=== PATIENT | female | born 1930 | race Caucasian/White ===

== ENCOUNTER 2016-12-03 21:05 | Inpatient (IN) | payer MEDICAID ==
[~2016-12-03] VITALS: Ht 152.4 cm; Wt 51.7 kg
[~2016-12-03 21:05] MED LIST: AMLO2.5T45 PO; ASPI-1159 PO; DIPH25CA83 PO; FLOV44; GABA100C PO; LORA5TAB8 PO; LOSA1TAB37 PO
[2016-12-03] MEDS ORDERED: MORPHINE SULFATE 4 MG/ML CPJ (NOT FOR IM USE) IV STA (22:02)
[2016-12-03] MEDS ORDERED: ONDANSETRON HCL 4MG/2ML VIAL IV STA (22:02)
[2016-12-03 22:37] LABS: BASOPHILS % 0.6 % (0.0-2.0); EOSINOPHILS % 1.6 % (0.0-5.0); HEMATOCRIT. 31.9 % (36.0-48.0); LYMPHOCYTES % 23.3 % (20.0-50.0); MEAN CORPUSCULAR HEMOGLOBIN 32.1 pg (28.0-32.0); MEAN CORPUSCULAR VOLUME 93.5 fL (81.0-99.0); NEUTROPHILS % 60.5 % (40.0-76.0); PLATELET 190 x1000/uL (130-400); RED BLOOD CELL COUNT 3.41 mill/uL (4.2-5.4); RED CELL DISTRIBUTION WIDTH 13.7 % (11.6-14.6)
[2016-12-03 22:47] LABS: PARTIAL THROMBOPLASTIN TIME 26.7 sec (23.4-31.0); PROTHROMBIN TIME 10.9 sec (9.4-11.6)
[2016-12-03 22:52] LABS: CARBON DIOXIDE 25 mEq/L (21-32); CHLORIDE 100 mEq/L (98-107); TROPONIN I 0.02 ng/mL (0.00-0.04)
[2016-12-04] VITALS (7 sets, daily range): BP systolic 137–164; BP diastolic 60–79
[2016-12-04] MEDS ORDERED: DOCUSATE SODIUM 100MG CAPSULE PO PRN (01:00)
[2016-12-04] MEDS ORDERED: CLONIDINE 0.1MG TABLET PO PRN (01:00)
[2016-12-04] MEDS ORDERED: IPRATROPIUM/ALBUTEROL 0.5-3(2.5)MG/3ML NEB INH PRN (01:00)
[2016-12-04] MEDS ORDERED: MAGNESIUM/ALUMINUM HYDROXIDE/SIMETHICONE 30ML UDC PO PRN (01:00)
[2016-12-04] MEDS ORDERED: ONDANSETRON HCL 4MG/2ML VIAL IV PRN (01:00)
[2016-12-04] MEDS ORDERED: ACETAMINOPHEN 325MG TABLET PO PRN (01:00)
[2016-12-04 02:14] LABS: CARBON DIOXIDE 26 mEq/L (21-32); CHLORIDE 100 mEq/L (98-107)
[2016-12-04] MEDS ORDERED: LATA2.5D2 BOTHEYE (03:33)
[2016-12-04] MEDS ORDERED: TOBR5DRO45 EACHEYE (03:34)
[2016-12-04] MEDS ORDERED: CALC-61 PO (03:46)
[2016-12-04] MEDS ORDERED: NITR50CA PO (03:46)
[2016-12-04] MEDS ORDERED: CILO100T PO (03:46)
[2016-12-04] MEDS ORDERED: ACET167L14 PO (03:46)
[2016-12-04] MEDS ORDERED: METO25TA6 PO (03:46)
[2016-12-04] MEDS ORDERED: ACETAMINOPHEN 500 MG PO SCH (04:00)
[2016-12-04] MEDS: ACETAMINOPHEN 650MG/20.3ML UDC PO SCH ×3 (06:26→17:54)
[2016-12-04 08:11] LABS: CREATINE KINASE MB FRACTION 1.2 ng/mL (0.5-3.6); TROPONIN I 0.03 ng/mL (0.00-0.04)
[2016-12-04] MEDS ORDERED: LORATADINE 5 MG PO SCH (09:00)
[2016-12-04] MEDS ORDERED: CALCIUM CARBONATE PO SCH (09:00)
[2016-12-04] MEDS: TOBRAMYCIN/DEXAMETH 0.1/0.3% OPHTH SUSP 2.5ML BOTHEYE SCH ×2 (09:00→13:33)
[2016-12-04] MEDS ORDERED: MEDICATION NOT ON FORMULARY EA (Losartan/Hydrochlorothiazide (Losartan-Hctz 100-25 Mg Ta PO SCH (09:00)
[2016-12-04] MEDS ORDERED: [UNRECOGNIZED DRUG - OTHER] PO SCH (09:00)
[2016-12-04] MEDS: LATANOPROST 0.005% OPHTH DROPS 2.5ML BOTHEYE SCH ×2 (09:00→13:33)
[2016-12-04] MEDS ORDERED: VITAMIN D3 PO SCH (09:00)
[2016-12-04] MEDS: METOPROLOL TARTRATE 25MG TABLET PO SCH ×2 (11:07→21:48)
[2016-12-04] MEDS: ASPIRIN 81MG EC TABLET PO SCH (11:07)
[2016-12-04] MEDS: HYDROCHLOROTHIAZIDE 25MG TABLET PO SCH (11:07)
[2016-12-04] MEDS: LOSARTAN POTASSIUM 100 MG TABLET PO SCH (11:08)
[2016-12-04] MEDS: CALCIUM CARBONATE/VITAMIN D3 500MG TABLET PO SCH ×2 (11:08→17:52)
[2016-12-04] MEDS: NITROFURANTOIN MACROCRYSTAL 50MG CAPSULE PO SCH ×2 (11:08→17:52)
[2016-12-04] MEDS: CILOSTAZOL 100MG TABLET PO SCH ×2 (11:08→17:52)
[2016-12-04] MEDS ORDERED: FOLI-43 PO (11:44)
[2016-12-04] MEDS ORDERED: LORA10TA7 PO (11:44)
[2016-12-04] MEDS ORDERED: PNEUMOCOCCAL 23-VAL P-SAC VAC 0.5 ML IM ONE (12:00)
[2016-12-04] MEDS: LORATADINE 10MG TABLET PO SCH (13:33)
[2016-12-04 15:17] LABS: CREATINE KINASE MB FRACTION 1.4 ng/mL (0.5-3.6); TROPONIN I 0.02 ng/mL (0.00-0.04)
[2016-12-04] MEDS ORDERED: HYDROCODONE/ACETAMINOPHEN 5/325MG TABLET PO PRN (20:17)
[2016-12-04] MEDS: DIPHENHYDRAMINE 25MG CAPSULE PO SCH (20:23)
[2016-12-05] VITALS: BP 140/76
[2016-12-05 04:00] VITALS: BP 132/78
[2016-12-05] MEDS: ACETAMINOPHEN 650MG/20.3ML UDC PO SCH ×4 (06:00→18:31)
[2016-12-05 06:33] LABS: BASOPHILS % 0.7 % (0.0-2.0); EOSINOPHILS % 0.7 % (0.0-5.0); HEMATOCRIT. 36.6 % (36.0-48.0); HEMOGLOBIN. 12.7 g/dL (12.0-16.0); LYMPHOCYTES % 20.3 % (20.0-50.0); MEAN CORPUSCULAR HEMOGLOBIN 32.4 pg (28.0-32.0); MEAN CORPUSCULAR VOLUME 93.6 fL (81.0-99.0); MEAN PLATELET VOLUME 7.7 fl (7.4-10.4); MONOCYTES % 11.9 % (2.0-8.0); NEUTROPHILS % 66.4 % (40.0-76.0); PLATELET 221 x1000/uL (130-400); RED BLOOD CELL COUNT 3.91 mill/uL (4.2-5.4); RED CELL DISTRIBUTION WIDTH 13.8 % (11.6-14.6)
[2016-12-05 06:58] LABS: CARBON DIOXIDE 21 mEq/L (21-32); CHLORIDE 96 mEq/L (98-107)
[2016-12-05 07:10] LABS: HDL CHOLESTEROL 55 mg/dL (40-59); LDL CHOLESTEROL 83 mg/dL (5-100)
[2016-12-05 07:54] VITALS: BP 126/63
[2016-12-05] MEDS: METOPROLOL TARTRATE 25MG TABLET PO SCH ×2 (08:19→20:31)
[2016-12-05] MEDS: LORATADINE 10MG TABLET PO SCH (08:20)
[2016-12-05] MEDS: CILOSTAZOL 100MG TABLET PO SCH ×2 (08:20→18:30)
[2016-12-05] MEDS: TOBRAMYCIN/DEXAMETH 0.1/0.3% OPHTH SUSP 2.5ML BOTHEYE SCH (08:20)
[2016-12-05] MEDS: LOSARTAN POTASSIUM 100 MG TABLET PO SCH (08:20)
[2016-12-05] MEDS: CALCIUM CARBONATE/VITAMIN D3 500MG TABLET PO SCH ×2 (08:20→18:31)
[2016-12-05] MEDS: FOLIC ACID 1MG TABLET PO SCH (08:20)
[2016-12-05] MEDS: NITROFURANTOIN MACROCRYSTAL 50MG CAPSULE PO SCH ×2 (08:20→18:31)
[2016-12-05] MEDS: HYDROCHLOROTHIAZIDE 25MG TABLET PO SCH (08:20)
[2016-12-05] MEDS: ASPIRIN 81MG EC TABLET PO SCH (08:20)
[2016-12-05] MEDS: LATANOPROST 0.005% OPHTH DROPS 2.5ML BOTHEYE SCH (08:21)
[2016-12-05 11:55] VITALS: BP 110/62
[2016-12-05 16:00] VITALS: BP 91/50
[2016-12-05 20:00] VITALS: BP_SYST 120; BP_SYST 129; BP_DIAS 60; BP_DIAS 65
[2016-12-05] MEDS: DIPHENHYDRAMINE 25MG CAPSULE PO SCH (20:31)
[2016-12-06] VITALS: BP 126/69
[2016-12-06] MEDS: ACETAMINOPHEN 650MG/20.3ML UDC PO SCH ×4 (01:09→17:08)
[2016-12-06 04:00] VITALS: BP 125/62
[2016-12-06 06:35] LABS: BASOPHILS % 0.8 % (0.0-2.0); EOSINOPHILS % 2.6 % (0.0-5.0); HEMATOCRIT. 35.4 % (36.0-48.0); HEMOGLOBIN. 12.3 g/dL (12.0-16.0); LYMPHOCYTES % 28.9 % (20.0-50.0); MEAN CORPUSCULAR HEMOGLOBIN 32.4 pg (28.0-32.0); MEAN CORPUSCULAR VOLUME 93.2 fL (81.0-99.0); MEAN PLATELET VOLUME 7.7 fl (7.4-10.4); MONOCYTES % 13.6 % (2.0-8.0); NEUTROPHILS % 54.1 % (40.0-76.0); PLATELET 223 x1000/uL (130-400); RED CELL DISTRIBUTION WIDTH 13.7 % (11.6-14.6)
[2016-12-06 07:18] LABS: CARBON DIOXIDE 22 mEq/L (21-32); CHLORIDE 96 mEq/L (98-107)
[2016-12-06 07:53] VITALS: BP 120/62
[2016-12-06] MEDS: TOBRAMYCIN/DEXAMETH 0.1/0.3% OPHTH SUSP 2.5ML BOTHEYE SCH (09:29)
[2016-12-06] MEDS: LOSARTAN POTASSIUM 100 MG TABLET PO SCH (09:30)
[2016-12-06] MEDS: HYDROCHLOROTHIAZIDE 25MG TABLET PO SCH (09:30)
[2016-12-06] MEDS: NITROFURANTOIN MACROCRYSTAL 50MG CAPSULE PO SCH ×2 (09:30→17:08)
[2016-12-06] MEDS: LATANOPROST 0.005% OPHTH DROPS 2.5ML BOTHEYE SCH (09:30)
[2016-12-06] MEDS: FOLIC ACID 1MG TABLET PO SCH (09:31)
[2016-12-06] MEDS: LORATADINE 10MG TABLET PO SCH (09:33)
[2016-12-06] MEDS: CILOSTAZOL 100MG TABLET PO SCH ×2 (09:33→17:08)
[2016-12-06] MEDS: METOPROLOL TARTRATE 25MG TABLET PO SCH ×2 (09:33→21:00)
[2016-12-06] MEDS: CALCIUM CARBONATE/VITAMIN D3 500MG TABLET PO SCH ×2 (09:36→17:08)
[2016-12-06] MEDS: ASPIRIN 81MG EC TABLET PO SCH (09:36)
[2016-12-06 12:00] VITALS: BP 109/63
[2016-12-06] MEDS ORDERED: HYDR-523 PO (14:33)
[2016-12-06 16:20] VITALS: BP 94/46
[2016-12-06 20:43] VITALS: BP 114/54
[2016-12-06] MEDS: DIPHENHYDRAMINE 25MG CAPSULE PO SCH (22:03)
[2016-12-07] VITALS: BP 125/55
[2016-12-07] MEDS: ACETAMINOPHEN 650MG/20.3ML UDC PO SCH ×4 (00:37→17:12)
[2016-12-07 04:00] VITALS: BP 127/60
[2016-12-07 07:29] VITALS: BP 122/57
[2016-12-07] MEDS: ASPIRIN 81MG EC TABLET PO SCH (08:28)
[2016-12-07] MEDS: NITROFURANTOIN MACROCRYSTAL 50MG CAPSULE PO SCH ×2 (08:29→17:17)
[2016-12-07] MEDS: HYDROCHLOROTHIAZIDE 25MG TABLET PO SCH (08:29)
[2016-12-07] MEDS: FOLIC ACID 1MG TABLET PO SCH (08:29)
[2016-12-07] MEDS: LOSARTAN POTASSIUM 100 MG TABLET PO SCH (08:29)
[2016-12-07] MEDS: LORATADINE 10MG TABLET PO SCH (08:29)
[2016-12-07] MEDS: CALCIUM CARBONATE/VITAMIN D3 500MG TABLET PO SCH ×2 (08:29→17:17)
[2016-12-07] MEDS: METOPROLOL TARTRATE 25MG TABLET PO SCH ×2 (08:29→21:00)
[2016-12-07] MEDS: TOBRAMYCIN/DEXAMETH 0.1/0.3% OPHTH SUSP 2.5ML BOTHEYE SCH (08:30)
[2016-12-07] MEDS: LATANOPROST 0.005% OPHTH DROPS 2.5ML BOTHEYE SCH (08:30)
[2016-12-07] MEDS: CILOSTAZOL 100MG TABLET PO SCH ×2 (08:34→17:17)
[2016-12-07 11:31] VITALS: BP 101/48
[2016-12-07 16:00] VITALS: BP 118/55
[2016-12-07 20:00] VITALS: BP 119/57
[2016-12-07] MEDS: DIPHENHYDRAMINE 25MG CAPSULE PO SCH (21:50)
[2016-12-08] VITALS: BP 108/59
[2016-12-08] MEDS: ACETAMINOPHEN 650MG/20.3ML UDC PO SCH ×4 (00:34→18:54)
[2016-12-08 04:00] VITALS: BP 124/55
[2016-12-08 06:43] LABS: BASOPHILS % 0.5 % (0.0-2.0); EOSINOPHILS % 1.1 % (0.0-5.0); HEMATOCRIT. 38.8 % (36.0-48.0); HEMOGLOBIN. 13.2 g/dL (12.0-16.0); LYMPHOCYTES % 22.1 % (20.0-50.0); MEAN CORPUSCULAR HEMOGLOBIN 32.2 pg (28.0-32.0); MEAN CORPUSCULAR VOLUME 94.7 fL (81.0-99.0); MEAN PLATELET VOLUME 7.5 fl (7.4-10.4); MONOCYTES % 13.3 % (2.0-8.0); PLATELET 233 x1000/uL (130-400); RED BLOOD CELL COUNT 4.09 mill/uL (4.2-5.4); RED CELL DISTRIBUTION WIDTH 13.9 % (11.6-14.6)
[2016-12-08 07:52] LABS: CARBON DIOXIDE 21 mEq/L (21-32); CHLORIDE 99 mEq/L (98-107)
[2016-12-08 07:59] VITALS: BP 139/68
[2016-12-08] MEDS: METOPROLOL TARTRATE 25MG TABLET PO SCH ×2 (11:04→21:00)
[2016-12-08] MEDS: LOSARTAN POTASSIUM 100 MG TABLET PO SCH (11:04)
[2016-12-08] MEDS: HYDROCHLOROTHIAZIDE 25MG TABLET PO SCH (11:04)
[2016-12-08] MEDS: CILOSTAZOL 100MG TABLET PO SCH ×2 (11:04→18:54)
[2016-12-08] MEDS: ASPIRIN 81MG EC TABLET PO SCH (11:05)
[2016-12-08] MEDS: LATANOPROST 0.005% OPHTH DROPS 2.5ML BOTHEYE SCH (11:05)
[2016-12-08] MEDS: LORATADINE 10MG TABLET PO SCH (11:05)
[2016-12-08] MEDS: TOBRAMYCIN/DEXAMETH 0.1/0.3% OPHTH SUSP 2.5ML BOTHEYE SCH (11:05)
[2016-12-08] MEDS: CALCIUM CARBONATE/VITAMIN D3 500MG TABLET PO SCH ×2 (11:05→18:54)
[2016-12-08] MEDS: FOLIC ACID 1MG TABLET PO SCH (11:05)
[2016-12-08] MEDS: NITROFURANTOIN MACROCRYSTAL 50MG CAPSULE PO SCH ×2 (11:05→18:54)
[2016-12-08 12:22] VITALS: BP 120/61
[2016-12-08 16:54] VITALS: BP 100/64
[2016-12-08 19:27] LABS: GLUCOSE URINE NEGATIVE (NEGATIVE); KETONES URINE 1+ (NEGATIVE); LEUKOCYTE ESTERASE URINE 1+ (NEGATIVE); NITRITE URINE NEGATIVE (NEGATIVE); OCCULT BLOOD URINE NEGATIVE (NEGATIVE); PROTEIN URINE NEGATIVE (NEGATIVE); SPECIFIC GRAVITY URINE 1.028 (1.005-1.030)
[2016-12-08 19:29] LABS: CLARITY URINE SL HAZY (CLEAR); COLOR URINE YELLOW (YELLOW)
[2016-12-08 20:00] VITALS: BP 108/78
[2016-12-08] MEDS: DIPHENHYDRAMINE 25MG CAPSULE PO SCH (21:47)
[2016-12-09] VITALS (8 sets, daily range): BP systolic 91–118; BP diastolic 46–80
[2016-12-09] MEDS: ACETAMINOPHEN 650MG/20.3ML UDC PO SCH ×4 (00:47→18:32)
[2016-12-09 06:32] LABS: BASOPHILS % 0.3 % (0.0-2.0); EOSINOPHILS % 0.3 % (0.0-5.0); HEMATOCRIT. 36.7 % (36.0-48.0); HEMOGLOBIN. 12.7 g/dL (12.0-16.0); LYMPHOCYTES % 11.1 % (20.0-50.0); MEAN CORPUSCULAR HEMOGLOBIN 32.4 pg (28.0-32.0); MEAN CORPUSCULAR VOLUME 93.5 fL (81.0-99.0); MEAN PLATELET VOLUME 7.8 fl (7.4-10.4); NEUTROPHILS % 78.3 % (40.0-76.0); PLATELET 257 x1000/uL (130-400); RED BLOOD CELL COUNT 3.92 mill/uL (4.2-5.4); RED CELL DISTRIBUTION WIDTH 13.5 % (11.6-14.6)
[2016-12-09] MEDS: LOSARTAN POTASSIUM 100 MG TABLET PO SCH (09:46)
[2016-12-09] MEDS: LORATADINE 10MG TABLET PO SCH (09:46)
[2016-12-09] MEDS: NITROFURANTOIN MACROCRYSTAL 50MG CAPSULE PO SCH ×2 (09:46→18:31)
[2016-12-09] MEDS: TOBRAMYCIN/DEXAMETH 0.1/0.3% OPHTH SUSP 2.5ML BOTHEYE SCH (09:46)
[2016-12-09] MEDS: LATANOPROST 0.005% OPHTH DROPS 2.5ML BOTHEYE SCH (09:46)
[2016-12-09] MEDS: METOPROLOL TARTRATE 25MG TABLET PO SCH ×2 (09:46→21:00)
[2016-12-09] MEDS: HYDROCHLOROTHIAZIDE 25MG TABLET PO SCH (09:46)
[2016-12-09] MEDS: CALCIUM CARBONATE/VITAMIN D3 500MG TABLET PO SCH ×2 (09:47→18:31)
[2016-12-09] MEDS: CILOSTAZOL 100MG TABLET PO SCH ×2 (09:47→18:31)
[2016-12-09] MEDS: FOLIC ACID 1MG TABLET PO SCH (09:47)
[2016-12-09] MEDS: ASPIRIN 81MG EC TABLET PO SCH (09:47)
[2016-12-09] MEDS ORDERED: LIFI1DRO OP (18:38)
[2016-12-09] MEDS: DIPHENHYDRAMINE 25MG CAPSULE PO SCH (22:11)
[2016-12-10] VITALS: BP_SYST 110; BP_SYST 99; BP_DIAS 46; BP_DIAS 48
[2016-12-10] MEDS: ACETAMINOPHEN 650MG/20.3ML UDC PO SCH ×4 (00:55→17:30)
[2016-12-10 04:00] VITALS: BP 109/49
[2016-12-10 08:00] VITALS: BP_SYST 105; BP_DIAS 50; BP_DIAS 63
[2016-12-10] MEDS: LOSARTAN POTASSIUM 100 MG TABLET PO SCH (09:00)
[2016-12-10] MEDS: HYDROCHLOROTHIAZIDE 25MG TABLET PO SCH (09:00)
[2016-12-10] MEDS: METOPROLOL TARTRATE 25MG TABLET PO SCH (09:00)
[2016-12-10] MEDS: LATANOPROST 0.005% OPHTH DROPS 2.5ML BOTHEYE SCH (09:08)
[2016-12-10] MEDS: TOBRAMYCIN/DEXAMETH 0.1/0.3% OPHTH SUSP 2.5ML BOTHEYE SCH (09:08)
[2016-12-10] MEDS: CILOSTAZOL 100MG TABLET PO SCH ×2 (09:08→17:28)
[2016-12-10] MEDS: CALCIUM CARBONATE/VITAMIN D3 500MG TABLET PO SCH ×2 (09:09→17:28)
[2016-12-10] MEDS: ASPIRIN 81MG EC TABLET PO SCH (09:09)
[2016-12-10] MEDS: NITROFURANTOIN MACROCRYSTAL 50MG CAPSULE PO SCH ×2 (09:09→17:28)
[2016-12-10] MEDS: FOLIC ACID 1MG TABLET PO SCH (09:09)
[2016-12-10] MEDS: LORATADINE 10MG TABLET PO SCH (09:09)
[2016-12-10 12:14] VITALS: BP 114/50
[2016-12-10 14:24] VITALS: BP 114/50
[2016-12-10 16:00] VITALS: BP 105/48
== END 2016-12-10 18:00 | DRG 347 ==
LOC: ER 21:05 → 6WST 23:57 → ENRESERV 12-04 00:13
PROVIDERS: ADMIT Internal Medicine; ATTEND Internal Medicine
DX: S22.089A Unspecified fracture of T11-T12 vertebra, initial encounter for closed fracture (principal); J18.9 Pneumonia, unspecified organism; E86.0 Dehydration; D64.9 Anemia, unspecified; I11.9 Hypertensive heart disease without heart failure; G90.8 Other disorders of autonomic nervous system; S32.029A Unspecified fracture of second lumbar vertebra, initial encounter for closed fracture; H91.90 Unspecified hearing loss, unspecified ear; K44.9 Diaphragmatic hernia without obstruction or gangrene; M40.209 Unspecified kyphosis, site unspecified; M48.06 Spinal stenosis, lumbar region; W19.XXXA Unspecified fall, initial encounter; M51.37 Other intervertebral disc degeneration, lumbosacral region; M85.80 Other specified disorders of bone density and structure, unspecified site; Z96.651 Presence of right artificial knee joint; Y93.89 Activity, other specified; Y92.89 Other specified places as the place of occurrence of the external cause; Z79.82 Long term (current) use of aspirin; Z79.899 Other long term (current) drug therapy
CPT/HCPCS: 36415; 70450; 71010; 72125; 72131; 72146; 72148; 80048; 80053; 80061; 81001; 82550; 82553; 83690; 83735; 83880; 84443; 84484; 85025; 85610; 85730; 92610; 93005; 93306; 93970; 96374; 96375; 97162; 97166; 97530; 97535; 99285; A6261; C1893; J2270; J2405; Q0163

== ENCOUNTER 2018-02-03 07:19 | Inpatient (IN) | payer MEDICARE, MEDICAID ==
[2018-02-03] VITALS (7 sets, daily range): BP systolic 108–147; BP diastolic 41–75
[~2018-02-03] VITALS: Ht 162.6 cm; Wt 51.7 kg
[~2018-02-03 07:19] MED LIST changes: +ACET167L14 PO; -AMLO2.5T45 PO; +APIX2.5T PO; +CALC-61 PO; +CILO100T PO; +DOCU-150 PO; +FOLI-43 PO; +HYDR-523 PO; +LATA2.5D2 BOTHEYE; +LIFI1DRO OP; +LORA10TA7 PO; -LORA5TAB8 PO; -LOSA1TAB37 PO; +LOSA25TA12 PO; +METO25TA6 PO
[2018-02-03] MEDS ORDERED: ONDANSETRON HCL 4MG/2ML INJ IV STA (08:56)
[2018-02-03] MEDS ORDERED: PANTOPRAZOLE SODIUM 40 MG/VIAL IV STA (08:56)
[2018-02-03] MEDS ORDERED: SODIUM CHLORIDE 0.9% 1,000 ML IV ONE (08:56)
[2018-02-03 09:59] LABS: BASOPHILS % 0.5 % (0.0-2.0); EOSINOPHILS % 1.2 % (0.0-5.0); HEMATOCRIT. 27.1 % (36.0-48.0); HEMOGLOBIN. 9.3 g/dL (12.0-16.0); LYMPHOCYTES % 23.9 % (20.0-50.0); MEAN CORPUSCULAR HEMOGLOBIN 32.6 pg (28.0-32.0); MEAN CORPUSCULAR VOLUME 94.9 fL (81.0-99.0); MEAN PLATELET VOLUME 7.9 fl (7.4-10.4); MONOCYTES % 7.8 % (2.0-8.0); NEUTROPHILS % 66.6 % (40.0-76.0); PLATELET 189 x1000/uL (130-400); RED BLOOD CELL COUNT 2.86 mill/uL (4.2-5.4); RED CELL DISTRIBUTION WIDTH 17.3 % (11.6-14.6)
[2018-02-03 10:01] LABS: CHLORIDE 105 mEq/L (98-107)
[2018-02-03 10:03] LABS: INR 1.1; PROTHROMBIN TIME 10.8 sec (9.1-11.1)
[2018-02-03] MEDS ORDERED: ACETAMINOPHEN 325MG TABLET PO PRN (11:30)
[2018-02-03] MEDS ORDERED: IPRATROPIUM/ALBUTEROL 0.5-3(2.5)MG/3ML NEB INH PRN (11:30)
[2018-02-03] MEDS ORDERED: ONDANSETRON HCL 4MG/2ML INJ IV PRN (11:30)
[2018-02-03] MEDS ORDERED: CLONIDINE 0.1MG TABLET PO PRN (11:30)
[2018-02-03] MEDS ORDERED: MAGNESIUM/ALUMINUM HYDROXIDE/SIMETHICONE 30ML UDC PO PRN (11:30)
[2018-02-03] MEDS ORDERED: NITROGLYCERIN 0.4MG TABLET SL SL PRN (11:30)
[2018-02-03] MEDS ORDERED: TRAMADOL 50MG TABLET PO PRN (11:30)
[2018-02-03] MEDS ORDERED: GUAIFENESIN 200MG/10ML SUGAR FREE UDC PO PRN (11:30)
[2018-02-03] MEDS ORDERED: MORPHINE SULFATE 4 MG/ML CPJ (NOT FOR IM USE) IV PRN (11:30)
[2018-02-03] MEDS: DEXT 5%/0.45% NACL 1000ML 1,000 ML IV SCH (13:16)
[2018-02-03] MEDS ORDERED: PANTOPRAZOLE 80 MG in SODIUM CHLORIDE 0.9% 100 ML IV SCH ×4 (13:30)
[2018-02-03] MEDS ORDERED: BISACODYL 10MG SUPP PR PRN (17:00)
[2018-02-03] MEDS ORDERED: BISACODYL 5MG TABLET PO PRN (17:00)
[2018-02-03] MEDS ORDERED: INFLUENZA VIRUS VACCINE(AFLURIA) 0.5ML SYR IM ONE (17:30)
[2018-02-03 20:30] LABS: HEMATOCRIT 19.8 % (36.0-48.0); HEMOGLOBIN 6.8 g/dL (12.0-16.0)
[2018-02-03 20:34] LABS: TOTAL IRON BINDING CAPACITY 227 ug/dL (250-450)
[2018-02-03 20:37] LABS: CREATINE KINASE 38 IU/L (26-192)
[2018-02-03 20:39] LABS: CREATINE KINASE MB FRACTION < 1.0 ng/mL (0.5-3.6)
[2018-02-03 20:59] LABS: FOLIC ACID (FOLATE) SERUM > 20.00 ng/mL (>5.38)
[2018-02-03 21:00] LABS: FERRITIN 154 ng/mL (10-291)
[2018-02-03 21:02] LABS: VITAMIN B12 SERUM 613 pg/mL (211-911)
[2018-02-03] MEDS: PANTOPRAZOLE SODIUM 40 MG/VIAL IV SCH (21:57)
[2018-02-04] VITALS (16 sets, daily range): BP systolic 105–162; BP diastolic 60–106
[2018-02-04 07:32] LABS: BASOPHILS % 0.5 % (0.0-2.0); EOSINOPHILS % 1.7 % (0.0-5.0); HEMATOCRIT. 28.3 % (36.0-48.0); LYMPHOCYTES % 23.6 % (20.0-50.0); MEAN CORPUSCULAR HEMOGLOBIN 32.5 pg (28.0-32.0); MEAN CORPUSCULAR VOLUME 91.8 fL (81.0-99.0); MEAN PLATELET VOLUME 7.9 fl (7.4-10.4); MONOCYTES % 10.1 % (2.0-8.0); NEUTROPHILS % 64.1 % (40.0-76.0); PLATELET 125 x1000/uL (130-400); RED BLOOD CELL COUNT 3.09 mill/uL (4.2-5.4); RED CELL DISTRIBUTION WIDTH 16.6 % (11.6-14.6)
[2018-02-04 07:41] LABS: INR 1.1; PARTIAL THROMBOPLASTIN TIME 27.4 sec (23.4-31.0); PROTHROMBIN TIME 11.4 sec (9.1-11.1)
[2018-02-04 08:01] LABS: CHLORIDE 109 mEq/L (98-107)
[2018-02-04] MEDS: DOCUSATE SODIUM 250MG CAPSULE PO SCH (09:00)
[2018-02-04] MEDS: DEXT 5%/0.45% NACL 1000ML 1,000 ML IV SCH (09:16)
[2018-02-04] MEDS: PANTOPRAZOLE SODIUM 40 MG/VIAL IV SCH ×2 (10:30→21:10)
[2018-02-04] MEDS ORDERED: FENTANYL CITRATE/PF 50MCG/ML 2ML VIAL ONE (11:39)
[2018-02-04] MEDS ORDERED: MIDAZOLAM HCL 5 MG/5 ML VIAL ONE (11:39)
[2018-02-04] MEDS ORDERED: MIDAZOLAM HCL 5 MG/5 ML VIAL IV PRN (11:43)
[2018-02-04] MEDS ORDERED: FENTANYL CITRATE/PF 50MCG/ML 2ML VIAL IV PRN (11:44)
[2018-02-04] MEDS ORDERED: SIMETHICONE 40 MG/0.6 ML 30ML ONE ×2 (11:46→11:53)
[2018-02-04] MEDS ORDERED: BACTERIOSTATIC SODIUM CHLORIDE 0.9% 30ML VIAL IJ ONE (11:53)
[2018-02-04] MEDS ORDERED: EPINEPHRINE 0.1MG/ML (1:10,000) 10ML SYR ONE (13:43)
[2018-02-04] MEDS: LEVOFLOXACIN 500MG PREMIX 100 ML IV SCH (14:00)
[2018-02-04 16:05] LABS: HEMATOCRIT 28.5 % (36.0-48.0)
[2018-02-04] MEDS: SUCRALFATE 1 G/10 ML UDC PO SCH (17:04)
[2018-02-04 19:36] LABS: CLARITY URINE CLEAR (CLEAR); COLOR URINE YELLOW (YELLOW); KETONES URINE NEGATIVE (NEGATIVE); LEUKOCYTE ESTERASE URINE NEGATIVE (NEGATIVE); NITRITE URINE POSITIVE (NEGATIVE); OCCULT BLOOD URINE TRACE (NEGATIVE); PROTEIN URINE NEGATIVE (NEGATIVE); SPECIFIC GRAVITY URINE 1.015 (1.005-1.030); UROBILINOGEN URINE 0.2 E.U./dL (0.2-1.0)
[2018-02-05] VITALS (12 sets, daily range): BP systolic 107–156; BP diastolic 59–97
[2018-02-05] MEDS: SUCRALFATE 1 G/10 ML UDC PO SCH ×5 (00:43→23:54)
[2018-02-05] MEDS: DEXT 5%/0.45% NACL 1000ML 1,000 ML IV SCH ×3 (00:43→15:32)
[2018-02-05 01:52] LABS: HEMATOCRIT 27.7 % (36.0-48.0); HEMOGLOBIN 9.8 g/dL (12.0-16.0)
[2018-02-05 06:44] LABS: HEMATOCRIT 27.9 % (36.0-48.0)
[2018-02-05] MEDS: DOCUSATE SODIUM 250MG CAPSULE PO SCH (09:00)
[2018-02-05] MEDS: PANTOPRAZOLE SODIUM 40 MG/VIAL IV SCH ×2 (10:41→20:43)
[2018-02-05 12:17] LABS: HEMATOCRIT 28.3 % (36.0-48.0); HEMOGLOBIN 9.9 g/dL (12.0-16.0)
[2018-02-05] MEDS: LEVOFLOXACIN 500MG PREMIX 100 ML IV SCH (13:13)
[2018-02-05] MEDS: ZOLPIDEM TARTRATE 5MG TABLET PO PRN (20:43)
[2018-02-06] VITALS (13 sets, daily range): BP systolic 125–168; BP diastolic 43–95
[2018-02-06] MEDS: DEXT 5%/0.45% NACL 1000ML 1,000 ML IV SCH ×3 (02:07→20:39)
[2018-02-06] MEDS: SUCRALFATE 1 G/10 ML UDC PO SCH ×3 (06:04→18:00)
[2018-02-06] MEDS: PANTOPRAZOLE SODIUM 40 MG/VIAL IV SCH ×2 (08:27→20:39)
[2018-02-06] MEDS: DOCUSATE SODIUM 250MG CAPSULE PO SCH (08:27)
[2018-02-06] MEDS: LEVOFLOXACIN 500MG PREMIX 100 ML IV SCH (11:34)
[2018-02-07] VITALS (7 sets, daily range): BP systolic 94–167; BP diastolic 52–71
[2018-02-07] MEDS: DEXT 5%/0.45% NACL 1000ML 1,000 ML IV SCH ×3 (03:55→14:33)
[2018-02-07] MEDS: DOCUSATE SODIUM 250MG CAPSULE PO SCH ×2 (08:39→08:42)
[2018-02-07] MEDS: PANTOPRAZOLE SODIUM 40 MG/VIAL IV SCH ×2 (08:39→21:11)
[2018-02-07] MEDS: SUCRALFATE 1 G/10 ML UDC PO SCH ×4 (08:48→17:17)
[2018-02-07] MEDS: LEVOFLOXACIN 500MG PREMIX 100 ML IV SCH (14:32)
[2018-02-07 17:26] LABS: HEMATOCRIT 30.2 % (36.0-48.0); HEMOGLOBIN 10.6 g/dL (12.0-16.0); MEAN CORPUSCULAR HEMOGLOBIN 32.6 pg (28.0-32.0); MEAN CORPUSCULAR VOLUME 92.8 fL (81.0-99.0); PLATELET 150 x1000/uL (130-400); RED BLOOD CELL COUNT 3.26 mill/uL (4.2-5.4)
[2018-02-07 17:55] LABS: CHLORIDE 101 mEq/L (98-107)
[2018-02-07] MEDS ORDERED: POTASSIUM CHLORIDE 20MEQ TABLET SR PO NR (19:00)
[2018-02-07] MEDS ORDERED: POTASSIUM CHLORIDE INJ 40 MEQ in DEXT 5% WATER 250 ML IV NR (20:00)
[2018-02-07] MEDS: ZOLPIDEM TARTRATE 5MG TABLET PO PRN (21:11)
[2018-02-07] MEDS: KCL 10MEQ/50ML PREMIX 50 ML IV SCH ×2 (22:45→22:46)
[2018-02-08] VITALS: BP 125/55
[2018-02-08] MEDS: KCL 10MEQ/50ML PREMIX 50 ML IV SCH ×2 (01:31→01:32)
[2018-02-08] MEDS: SUCRALFATE 1 G/10 ML UDC PO SCH ×4 (01:38→18:37)
[2018-02-08] MEDS: DEXT 5%/0.45% NACL 1000ML 1,000 ML IV SCH ×2 (01:40→13:05)
[2018-02-08 04:00] VITALS: BP 120/56
[2018-02-08] MEDS: PANTOPRAZOLE SODIUM 40 MG/VIAL IV SCH ×2 (08:45→21:07)
[2018-02-08] MEDS: DOCUSATE SODIUM 250MG CAPSULE PO SCH (09:59)
[2018-02-08 12:00] VITALS: BP 118/80
[2018-02-08] MEDS: LEVOFLOXACIN 500MG PREMIX 100 ML IV SCH (13:00)
[2018-02-08 13:39] LABS: CHLORIDE 103 mEq/L (98-107)
[2018-02-08 16:00] VITALS: BP 138/60
[2018-02-08] MEDS ORDERED: POTASSIUM CHLORIDE 20MEQ TABLET SR PO NR (16:25)
[2018-02-08 20:00] VITALS: BP 118/77
[2018-02-09 00:15] VITALS: BP 151/58
[2018-02-09] MEDS: DEXT 5%/0.45% NACL 1000ML 1,000 ML IV SCH ×3 (01:02→18:42)
[2018-02-09] MEDS: SUCRALFATE 1 G/10 ML UDC PO SCH ×4 (01:05→18:41)
[2018-02-09 04:30] VITALS: BP 140/66
[2018-02-09 08:09] VITALS: BP 164/69
[2018-02-09] MEDS: PANTOPRAZOLE SODIUM 40 MG/VIAL IV SCH ×2 (08:48→21:41)
[2018-02-09] MEDS: DOCUSATE SODIUM 250MG CAPSULE PO SCH (08:48)
[2018-02-09 12:00] VITALS: BP 160/74
[2018-02-09] MEDS: LEVOFLOXACIN 500MG PREMIX 100 ML IV SCH (12:26)
[2018-02-09 12:46] LABS: CHLORIDE 99 mEq/L (98-107)
[2018-02-09] MEDS ORDERED: POTASSIUM CHLORIDE 20MEQ/PACKET PO NR (13:40)
[2018-02-09 16:00] VITALS: BP 138/66
[2018-02-09 19:52] VITALS: BP 130/64
[2018-02-10] VITALS: BP 138/72
[2018-02-10] MEDS: DEXT 5%/0.45% NACL 1000ML 1,000 ML IV SCH (03:41)
[2018-02-10 04:00] VITALS: BP 146/80
[2018-02-10] MEDS: SUCRALFATE 1 G/10 ML UDC PO SCH ×2 (06:13)
[2018-02-10 08:43] VITALS: BP 155/64
[2018-02-10] MEDS: PANTOPRAZOLE SODIUM 40 MG/VIAL IV SCH (09:07)
[2018-02-10] MEDS: DOCUSATE SODIUM 250MG CAPSULE PO SCH (09:13)
[2018-02-10 12:46] VITALS: BP 144/67
== END 2018-02-10 14:08 | DRG 378 ==
LOC: ER 07:19 → 3WST 10:47 → EDBEDREQ 10:48 → ENRESERV 10:50 → SUPCPDRO 11:21 → 6WST 02-07 05:21
PROVIDERS: ADMIT Internal Medicine; ATTEND Internal Medicine
PROC: 30233N1 Transfusion of Nonautologous Red Blood Cells into Peripheral Vein, Percutaneous Approach (ICD-10-PCS; 2018-02-03)
PROC: 3E0G8GC Introduction of Other Therapeutic Substance into Upper GI, Via Natural or Artificial Opening Endoscopic (ICD-10-PCS; 2018-02-04)
PROC: 0W3P8ZZ Control Bleeding in Gastrointestinal Tract, Via Natural or Artificial Opening Endoscopic (ICD-10-PCS; principal; 2018-02-04 11:00)
DX: K55.21 Angiodysplasia of colon with hemorrhage (principal); D62 Acute posthemorrhagic anemia; E44.1 Mild protein-calorie malnutrition; Z68.1 Body mass index [BMI] 19.9 or less, adult; E83.51 Hypocalcemia; K59.00 Constipation, unspecified; S81.002A Unspecified open wound, left knee, initial encounter; L53.8 Other specified erythematous conditions; K29.71 Gastritis, unspecified, with bleeding; K44.9 Diaphragmatic hernia without obstruction or gangrene; I10 Essential (primary) hypertension; H40.9 Unspecified glaucoma; H91.90 Unspecified hearing loss, unspecified ear; Z96.659 Presence of unspecified artificial knee joint; M19.90 Unspecified osteoarthritis, unspecified site; Z96.649 Presence of unspecified artificial hip joint; Z86.73 Personal history of transient ischemic attack (TIA), and cerebral infarction without residual deficits; X58.XXXA Exposure to other specified factors, initial encounter; Y93.89 Activity, other specified; Y92.89 Other specified places as the place of occurrence of the external cause; Y99.8 Other external cause status; Z79.82 Long term (current) use of aspirin; Z79.899 Other long term (current) drug therapy
CPT/HCPCS: 36415; 71045; 80048; 80076; 82140; 82270; 82550; 82553; 82607; 82728; 82746; 83540; 83550; 83735; 84484; 85014; 85018; 85027; 86850; 86900; 86920; 93005; 93970; 96361; 96374; 96375; 97162; 97166; 97530; 99285; A6261; C1893; C9113; J1956; J2250; J2405; J3010; J3480; J3490; J7030; J7050; J7060; P9016

== ENCOUNTER 2018-03-27 08:16 | Inpatient (IN) | payer MEDICARE, MEDICAID ==
[~2018-03-27] VITALS: Ht 152.4 cm; Wt 45.4 kg
[2018-03-27] MEDS ORDERED: ACETAMINOPHEN 325MG TABLET PO ONE (09:00)
[2018-03-27] MEDS ORDERED: SODIUM CHLORIDE 0.9% 1,000 ML IV ONE (10:30)
[2018-03-27] MEDS ORDERED: FENTANYL CITRATE/PF 50MCG/ML 2ML VIAL IV ONE (11:00)
[2018-03-27 11:32] LABS: BASOPHILS % 0.6 % (0.0-2.0); EOSINOPHILS % 0.7 % (0.0-5.0); HEMATOCRIT. 39.6 % (36.0-48.0); HEMOGLOBIN. 13.3 g/dL (12.0-16.0); LYMPHOCYTES % 24.8 % (20.0-50.0); MEAN CORPUSCULAR HEMOGLOBIN 31.4 pg (28.0-32.0); MEAN CORPUSCULAR VOLUME 93.2 fL (81.0-99.0); MEAN PLATELET VOLUME 8.1 fl (7.4-10.4); MONOCYTES % 8.1 % (2.0-8.0); NEUTROPHILS % 65.8 % (40.0-76.0); PLATELET 193 x1000/uL (130-400); RED BLOOD CELL COUNT 4.24 mill/uL (4.2-5.4); RED CELL DISTRIBUTION WIDTH 16.2 % (11.6-14.6)
[2018-03-27 11:35] LABS: CHLORIDE 104 mEq/L (98-107); PROTHROMBIN TIME 10.5 sec (9.1-11.1)
[2018-03-27] MEDS ORDERED: DOCUSATE SODIUM 100MG CAPSULE PO PRN (12:00)
[2018-03-27] MEDS ORDERED: GUAIFENESIN 200MG/10ML SUGAR FREE UDC PO PRN (12:00)
[2018-03-27] MEDS ORDERED: IPRATROPIUM/ALBUTEROL 0.5-3(2.5)MG/3ML NEB INH PRN (12:00)
[2018-03-27] MEDS ORDERED: ACETAMINOPHEN 325MG TABLET PO PRN (12:00)
[2018-03-27] MEDS ORDERED: NA PHOS,M-B/NA PHOS,DI-BA ENEMA 118ML PR PRN (12:00)
[2018-03-27] MEDS ORDERED: CLONIDINE 0.1MG TABLET PO PRN (12:00)
[2018-03-27] MEDS ORDERED: ONDANSETRON HCL 4MG/2ML INJ IV PRN (12:00)
[2018-03-27] MEDS ORDERED: LORAZEPAM 0.5MG TABLET PO PRN (12:00)
[2018-03-27] MEDS ORDERED: ZOLPIDEM TARTRATE 5MG TABLET PO PRN (12:00)
[2018-03-27] MEDS ORDERED: NITROGLYCERIN 0.4MG TABLET SL SL PRN (12:00)
[2018-03-27] MEDS ORDERED: MAGNESIUM/ALUMINUM HYDROXIDE/SIMETHICONE 30ML UDC PO PRN (12:00)
[2018-03-27 12:52] LABS: CLARITY URINE TURBID (CLEAR); COLOR URINE YELLOW (YELLOW); KETONES URINE NEGATIVE (NEGATIVE); LEUKOCYTE ESTERASE URINE 1+ (NEGATIVE); NITRITE URINE NEGATIVE (NEGATIVE); OCCULT BLOOD URINE NEGATIVE (NEGATIVE); PH URINE 7.5 (4.5-8.0); PROTEIN URINE 1+ (NEGATIVE); SPECIFIC GRAVITY URINE 1.017 (1.005-1.030)
[2018-03-27] MEDS ORDERED: CEFTRIAXONE 1 G PREMIX 50 ML IV ONE (13:30)
[2018-03-27 17:20] VITALS: BP 182/95
[2018-03-27 18:03] VITALS: BP 117/79
[2018-03-27 18:04] VITALS: BP 182/95
[2018-03-27 20:00] VITALS: BP 124/63
[2018-03-27] MEDS ORDERED: PILO5TAB MT (20:40)
[2018-03-27] MEDS ORDERED: ALEN10TA6 MT (20:41)
[2018-03-27] MEDS ORDERED: CYCL30DR EACHEYE (20:42)
[2018-03-27] MEDS: SUCRALFATE 1 G/10 ML UDC PO SCH (21:00)
[2018-03-27] MEDS: FAMOTIDINE 20MG TABLET PO SCH (21:00)
[2018-03-27] MEDS ORDERED: FAMOTIDINE 20MG TABLET PO SCH (21:00)
[2018-03-27] MEDS: ASCORBIC ACID 500 MG TABLET PO SCH (21:00)
[2018-03-27] MEDS ORDERED: METOPROLOL TARTRATE 25MG TABLET PO SCH (21:00)
[2018-03-27] MEDS: ENOXAPARIN 40MG/0.4ML SYR SUBCUT SCH (22:45)
[2018-03-27] MEDS: FERROUS SULFATE 300MG/5ML UDC PO SCH (22:54)
[2018-03-28] VITALS: BP 153/55
[2018-03-28 04:00] VITALS: BP 168/63
[2018-03-28] MEDS: SUCRALFATE 1 G/10 ML UDC PO SCH ×4 (06:34→22:06)
[2018-03-28 08:00] VITALS: BP 140/55
[2018-03-28] MEDS: ZINC SULFATE 220 MG ( 50 ) CAPSULE PO SCH (08:58)
[2018-03-28] MEDS: ASCORBIC ACID 500 MG TABLET PO SCH ×2 (08:58→22:07)
[2018-03-28] MEDS: FERROUS SULFATE 300MG/5ML UDC PO SCH ×3 (08:58→18:46)
[2018-03-28] MEDS: HYDROMORPHONE HCL/PF 2MG/ML CPJ IV PRN ×3 (10:27→18:44)
[2018-03-28] MEDS: METOPROLOL TARTRATE 25MG TABLET PO SCH ×2 (10:30→21:00)
[2018-03-28 12:00] VITALS: BP 131/47
[2018-03-28 16:00] VITALS: BP 134/57
[2018-03-28 20:00] VITALS: BP 118/51
[2018-03-28] MEDS: FAMOTIDINE 20MG TABLET PO SCH (22:07)
[2018-03-28] MEDS: ENOXAPARIN 40MG/0.4ML SYR SUBCUT SCH (22:08)
[2018-03-29] VITALS: BP 139/50
[2018-03-29 04:00] VITALS: BP 126/82
[2018-03-29] MEDS: SUCRALFATE 1 G/10 ML UDC PO SCH ×4 (06:50→22:13)
[2018-03-29 08:00] VITALS: BP 117/67
[2018-03-29] MEDS: FERROUS SULFATE 300MG/5ML UDC PO SCH ×3 (09:51→17:50)
[2018-03-29] MEDS: METOPROLOL TARTRATE 25MG TABLET PO SCH ×2 (09:52→22:17)
[2018-03-29] MEDS: ZINC SULFATE 220 MG ( 50 ) CAPSULE PO SCH (09:52)
[2018-03-29] MEDS: ASCORBIC ACID 500 MG TABLET PO SCH ×2 (09:52→22:16)
[2018-03-29 12:03] VITALS: BP 136/40
[2018-03-29 16:12] VITALS: BP 140/100
[2018-03-29 20:00] VITALS: BP 148/60
[2018-03-29] MEDS: TRAMADOL 50MG TABLET PO PRN (22:15)
[2018-03-29] MEDS: FAMOTIDINE 20MG TABLET PO SCH (22:17)
[2018-03-29] MEDS: ENOXAPARIN 40MG/0.4ML SYR SUBCUT SCH (22:18)
[2018-03-30] VITALS: BP 135/78
[2018-03-30 04:00] VITALS: BP 119/77
[2018-03-30] MEDS: SUCRALFATE 1 G/10 ML UDC PO SCH ×4 (07:06→22:03)
[2018-03-30 08:00] VITALS: BP 140/56
[2018-03-30] MEDS: METOPROLOL TARTRATE 25MG TABLET PO SCH ×2 (08:46→22:04)
[2018-03-30] MEDS: ASCORBIC ACID 500 MG TABLET PO SCH ×2 (08:46→22:03)
[2018-03-30] MEDS: FERROUS SULFATE 300MG/5ML UDC PO SCH ×3 (08:46→16:50)
[2018-03-30] MEDS: ZINC SULFATE 220 MG ( 50 ) CAPSULE PO SCH (09:00)
[2018-03-30 12:02] VITALS: BP 131/59
[2018-03-30 16:22] VITALS: BP 150/33
[2018-03-30 20:00] VITALS: BP 143/62
[2018-03-30] MEDS: FAMOTIDINE 20MG TABLET PO SCH (22:03)
[2018-03-30] MEDS: TRAMADOL 50MG TABLET PO PRN (22:06)
[2018-03-30] MEDS: ENOXAPARIN 30MG/0.3ML SYR SUBCUT SCH (22:06)
[2018-03-31] VITALS (7 sets, daily range): BP systolic 124–156; BP diastolic 55–89
[2018-03-31] MEDS: SUCRALFATE 1 G/10 ML UDC PO SCH ×4 (07:02→21:00)
[2018-03-31] MEDS: ASCORBIC ACID 500 MG TABLET PO SCH ×2 (08:39→21:00)
[2018-03-31] MEDS: ZINC SULFATE 220 MG ( 50 ) CAPSULE PO SCH (08:40)
[2018-03-31] MEDS: FERROUS SULFATE 300MG/5ML UDC PO SCH ×3 (08:40→17:30)
[2018-03-31] MEDS: METOPROLOL TARTRATE 25MG TABLET PO SCH ×2 (08:40→21:00)
[2018-03-31] MEDS: TRAMADOL 50MG TABLET PO PRN (11:42)
[2018-03-31] MEDS ORDERED: ACETAMINOPHEN WITH CODEINE 300/30MG TABLET PO PRN (20:15)
[2018-03-31] MEDS: ENOXAPARIN 30MG/0.3ML SYR SUBCUT SCH (21:00)
[2018-03-31] MEDS: FAMOTIDINE 20MG TABLET PO SCH (21:00)
[2018-04-01] VITALS: BP 126/80
[2018-04-01 04:00] VITALS: BP 152/82
[2018-04-01 08:00] VITALS: BP 171/81
[2018-04-01] MEDS: ASCORBIC ACID 500 MG TABLET PO SCH (08:23)
[2018-04-01] MEDS: FERROUS SULFATE 300MG/5ML UDC PO SCH ×3 (08:23→18:42)
[2018-04-01] MEDS: ZINC SULFATE 220 MG ( 50 ) CAPSULE PO SCH (08:23)
[2018-04-01] MEDS: SUCRALFATE 1 G/10 ML UDC PO SCH ×3 (08:23→18:42)
[2018-04-01] MEDS: METOPROLOL TARTRATE 25MG TABLET PO SCH (08:23)
[2018-04-01 12:02] VITALS: BP 127/54
[2018-04-01 16:13] VITALS: BP 137/51
[2018-04-01 17:31] VITALS: BP 137/51
[2018-04-01] MEDS ORDERED: LATANOPROST 0.005% OPHTH DROPS 2.5ML BOTHEYE SCH (21:00)
== END 2018-04-01 20:30 | DRG 563 ==
LOC: ER 08:16 → 6EST 10:46 → EDBEDREQ 10:48 → EDBEDREQTM 10:48 → ENRESERV 16:18
PROVIDERS: ADMIT Internal Medicine; ATTEND Internal Medicine
PROC: 2W3RX1Z Immobilization of Left Lower Leg using Splint (ICD-10-PCS; principal; 2018-03-27)
DX: S82.302A Unspecified fracture of lower end of left tibia, initial encounter for closed fracture (principal); F03.90 Unspecified dementia, unspecified severity, without behavioral disturbance, psychotic disturbance, mood disturbance, and anxiety; I10 Essential (primary) hypertension; M81.0 Age-related osteoporosis without current pathological fracture; L89.150 Pressure ulcer of sacral region, unstageable; L89.320 Pressure ulcer of left buttock, unstageable; L89.310 Pressure ulcer of right buttock, unstageable; S82.435A Nondisplaced oblique fracture of shaft of left fibula, initial encounter for closed fracture; W18.11XA Fall from or off toilet without subsequent striking against object, initial encounter; Y93.89 Activity, other specified; Y92.89 Other specified places as the place of occurrence of the external cause; Y99.8 Other external cause status; Z79.899 Other long term (current) drug therapy; Z79.82 Long term (current) use of aspirin
CPT/HCPCS: 36415; 71045; 73560; 73590; 73600; 80061; 83036; 84134; 93005; 93970; 96374; 97110; 97163; 97167; 97530; 99285; A6261; J0696; J1170; J1650; J3010; J7030